=== PATIENT | female | born 1985 | race Caucasian/White ===

== ENCOUNTER 2017-07-08 19:46 | Emergency (ER) | payer MEDICAID | END 2017-07-08 20:33 | disposition home or self-care (01) | LOC: E/R 20:33 | DX: H66.92 Otitis media, unspecified, left ear (principal); R05 Cough; R09.81 Nasal congestion; R51 Headache; J02.9 Acute pharyngitis, unspecified; R11.2 Nausea with vomiting, unspecified; R09.89 Other specified symptoms and signs involving the circulatory and respiratory systems | CPT/HCPCS: 99284 ==

== ENCOUNTER 2017-08-14 14:48 | Emergency (ER) | payer MEDICAID ==
[2017-08-14] MEDS: ACETAMINOPHEN 325 MG TAB PO (17:58)
[2017-08-14 18:04] LABS: ADD MAN DIFF? NO
[2017-08-14 18:07] LABS: WHITE BLOOD COUNT 7.3 10^3/ul (4.8-10.8)
[2017-08-14 18:07] LABS: BASOPHIL # 0.1 10^3/ul (0.0-0.1); BASOPHILS % 0.7 % (0.0-2.0); EOSINOPHILS # 0.1 10^3/ul (0.0-0.5); EOSINOPHILS % 1.6 % (0.0-7.0); HEMATOCRIT 41.3 % (37.0-47.0); LYMPHOCYTES % 27.6 % (15.0-51.0); MEAN CORPUSCULAR HEMOGLOBIN 30.8 pg (29.0-33.0); MEAN CORPUSCULAR HGB CONC 33.9 g/dl (32.0-37.0); MEAN PLATELET VOLUME 8.3 fl (7.4-10.4); MONOCYTE # 0.8 10^3/ul (0.3-0.9); MONOCYTES % 11.2 % (0.0-11.0); NEUTROPHIL # 4.3 10^3/ul (1.6-7.5); NEUTROPHILS % 58.6 % (39.0-77.0); PLATELET COUNT 407 10^3/UL (140-415); RED BLOOD COUNT 4.54 10^6/ul (4.20-5.40); RED CELL DISTRIBUTION WIDTH 12.4 % (11.5-14.5)
[2017-08-14 18:10] LABS: ADD UMIC YES; UR ASCORBIC ACID 40 mg/dL (NEGATIVE); UR BILIRUBIN (Dip) NEGATIVE (NEGATIVE); UR BLOOD (Dip) 1+ mg/dL (NEGATIVE); UR CLARITY SLIGHTLY CLOUDY (CLEAR); UR COLOR YELLOW (YELLOW); UR GLUCOSE (Dip) NEGATIVE (NEGATIVE); UR KETONES (Dip) NEGATIVE (NEGATIVE); UR LEUKOCYTE ESTERASE (Dip) NEGATIVE Leu/ul (NEGATIVE); UR NITRITE (Dip) NEGATIVE (NEGATIVE); UR RBC 1 /HPF (0-5); UR SPECIFIC GRAVITY (Dip) 1.027 (1.003-1.030); UR SQUAMOUS EPITHELIAL CELL FEW /HPF (FEW); UR TOTAL PROTEIN (Dip) NEGATIVE (NEGATIVE); UR UROBILINOGEN (Dip) NEGATIVE (NEGATIVE); UR WBC 1 /HPF (0-5)
== END 2017-08-14 20:10 | disposition home or self-care (01) ==
LOC: FTE 14:48
DX: O20.9 Hemorrhage in early pregnancy, unspecified (principal); R10.30 Lower abdominal pain, unspecified; R10.2 Pelvic and perineal pain; Z3A.01 Less than 8 weeks gestation of pregnancy
CPT/HCPCS: 36415; 76801; 76817; 81001; 84702; 85025; 86900; 86901; 87400; 99284-25

== ENCOUNTER 2017-11-11 20:03 | Emergency (ER) | payer MEDICAID, OTHER ==
[2017-11-11 21:56] LABS: ADD MAN DIFF? NO
[2017-11-11 21:58] LABS: WHITE BLOOD COUNT 8.4 10^3/ul (4.8-10.8)
[2017-11-11 21:58] LABS: BASOPHILS % 0.5 % (0.0-2.0); EOSINOPHILS # 0.1 10^3/ul (0.0-0.5); EOSINOPHILS % 0.7 % (0.0-7.0); HEMATOCRIT 39.4 % (37.0-47.0); HEMOGLOBIN 13.3 g/dl (12.0-16.0); LYMPHOCYTES # 3.1 10^3/ul (0.8-2.9); LYMPHOCYTES % 36.5 % (15.0-51.0); MEAN CORPUSCULAR HEMOGLOBIN 30.5 pg (29.0-33.0); MEAN CORPUSCULAR HGB CONC 33.8 g/dl (32.0-37.0); MEAN CORPUSCULAR VOLUME 90.4 fl (82.0-101.0); MEAN PLATELET VOLUME 8.4 fl (7.4-10.4); MONOCYTE # 0.6 10^3/ul (0.3-0.9); MONOCYTES % 7.2 % (0.0-11.0); NEUTROPHIL # 4.6 10^3/ul (1.6-7.5); PLATELET COUNT 370 10^3/UL (140-415); RED BLOOD COUNT 4.36 10^6/ul (4.20-5.40); RED CELL DISTRIBUTION WIDTH 11.8 % (11.5-14.5)
[2017-11-11 22:43] LABS: ADD UMIC YES; UR ASCORBIC ACID NEGATIVE (NEGATIVE); UR BACTERIA FEW /HPF (NONE SEEN); UR BILIRUBIN (Dip) NEGATIVE (NEGATIVE); UR BLOOD (Dip) 3+ mg/dL (NEGATIVE); UR CLARITY CLEAR (CLEAR); UR COLOR STRAW (YELLOW); UR GLUCOSE (Dip) NEGATIVE (NEGATIVE); UR KETONES (Dip) NEGATIVE (NEGATIVE); UR LEUKOCYTE ESTERASE (Dip) NEGATIVE Leu/ul (NEGATIVE); UR NITRITE (Dip) NEGATIVE (NEGATIVE); UR RBC 0 /HPF (0-5); UR SPECIFIC GRAVITY (Dip) 1.004 (1.003-1.030); UR TOTAL PROTEIN (Dip) NEGATIVE (NEGATIVE); UR UROBILINOGEN (Dip) NEGATIVE (NEGATIVE); UR WBC 0 /HPF (0-5)
== END 2017-11-11 23:05 | disposition home or self-care (01) ==
LOC: FTE 20:03
DX: O20.0 Threatened abortion (principal); Z3A.01 Less than 8 weeks gestation of pregnancy
CPT/HCPCS: 36415; 76801; 76817; 81001; 84702; 85025; 86900; 86901; 99284-25

== ENCOUNTER 2018-05-21 13:20 | Emergency (ER) | payer MEDICAID ==
[2018-05-21 16:13] LABS: URINE BLOOD (Dip) POC 2+ (NEGATIVE); URINE GLUCOSE (Dip) POC Negative (NEGATIVE); URINE KETONES (Dip) POC Negative (NEGATIVE); URINE LEUKOCYTE EST (Dip) POC Negative (NEGATIVE); URINE NITRITE (Dip) POC Negative (NEGATIVE); URINE TOTAL PROTEIN POC Negative (NEGATIVE)
== END 2018-05-21 17:36 | disposition home or self-care (01) ==
LOC: FTE 13:20
DX: O20.9 Hemorrhage in early pregnancy, unspecified (principal); Z3A.00 Weeks of gestation of pregnancy not specified
CPT/HCPCS: 36415; 76801; 81003; 81025; 84702; 99284-25

== ENCOUNTER 2018-05-24 19:40 | Emergency (ER) | payer MEDICAID | END 2018-05-25 | disposition home or self-care (01) | LOC: FTE 05-25 | DX: Z32.01 Encounter for pregnancy test, result positive (principal) | CPT/HCPCS: 84702; 99283 ==

== ENCOUNTER 2018-09-15 11:23 | Emergency (ER) | payer MEDICAID ==
[2018-09-15] MEDS: METOCLOPRAMIDE 10 MG TAB PO (11:55)
[2018-09-15] MEDS: ACETAMINOPHEN 325 MG TAB PO (11:55)
[2018-09-15 12:13] LABS: ADD UMIC NO; UR ASCORBIC ACID NEGATIVE (NEGATIVE); UR BILIRUBIN (Dip) NEGATIVE (NEGATIVE); UR BLOOD (Dip) NEGATIVE (NEGATIVE); UR CLARITY CLEAR (CLEAR); UR COLOR STRAW (YELLOW); UR GLUCOSE (Dip) NEGATIVE (NEGATIVE); UR KETONES (Dip) NEGATIVE (NEGATIVE); UR LEUKOCYTE ESTERASE (Dip) NEGATIVE Leu/ul (NEGATIVE); UR NITRITE (Dip) NEGATIVE (NEGATIVE); UR SPECIFIC GRAVITY (Dip) 1.002 (1.003-1.030); UR TOTAL PROTEIN (Dip) NEGATIVE (NEGATIVE); UR UROBILINOGEN (Dip) NEGATIVE (NEGATIVE)
== END 2018-09-15 14:24 | disposition home or self-care (01) ==
LOC: FTE 11:23
DX: O21.9 Vomiting of pregnancy, unspecified (principal); R51 Headache; O10.011 Pre-existing essential hypertension complicating pregnancy, first trimester; O26.892 Other specified pregnancy related conditions, second trimester; Z3A.14 14 weeks gestation of pregnancy
CPT/HCPCS: 76805; 81003; 99284-25

== ENCOUNTER 2018-10-03 23:14 | Emergency (ER) | payer MEDICAID, OTHER ==
[2018-10-04] MEDS: ACETAMINOPHEN 500 MG TAB PO (01:08)
[2018-10-04 01:25] LABS: URINE BLOOD (Dip) POC Negative (NEGATIVE); URINE GLUCOSE (Dip) POC Negative (NEGATIVE); URINE KETONES (Dip) POC Negative (NEGATIVE); URINE LEUKOCYTE EST (Dip) POC Negative (NEGATIVE); URINE NITRITE (Dip) POC Negative (NEGATIVE); URINE TOTAL PROTEIN POC Negative (NEGATIVE)
== END 2018-10-04 03:00 | disposition home or self-care (01) ==
LOC: FTE 23:14
DX: O23.41 Unspecified infection of urinary tract in pregnancy, first trimester (principal); R10.2 Pelvic and perineal pain; O10.012 Pre-existing essential hypertension complicating pregnancy, second trimester; Z3A.17 17 weeks gestation of pregnancy
CPT/HCPCS: 76805; 81003; 99284-25

== ENCOUNTER 2018-10-20 14:37 | Outpatient (CLI) | payer MEDICAID ==
[2018-10-20 16:02] LABS: ADD UMIC NO; UR ASCORBIC ACID NEGATIVE (NEGATIVE); UR BILIRUBIN (Dip) NEGATIVE (NEGATIVE); UR BLOOD (Dip) NEGATIVE (NEGATIVE); UR CLARITY CLEAR (CLEAR); UR COLOR COLORLESS (YELLOW); UR GLUCOSE (Dip) NEGATIVE (NEGATIVE); UR KETONES (Dip) NEGATIVE (NEGATIVE); UR LEUKOCYTE ESTERASE (Dip) NEGATIVE Leu/ul (NEGATIVE); UR NITRITE (Dip) NEGATIVE (NEGATIVE); UR SPECIFIC GRAVITY (Dip) 1.004 (1.003-1.030); UR TOTAL PROTEIN (Dip) NEGATIVE (NEGATIVE); UR UROBILINOGEN (Dip) NEGATIVE (NEGATIVE)
== END 2018-10-20 18:13 | disposition home or self-care (01) ==
LOC: OBT 14:37 → L-D 14:38 → OBT 18:13
DX: O36.8120 Decreased fetal movements, second trimester, not applicable or unspecified (principal); O26.892 Other specified pregnancy related conditions, second trimester; R10.2 Pelvic and perineal pain; Z3A.21 21 weeks gestation of pregnancy
CPT/HCPCS: 76817; 81003; 87086

== ENCOUNTER 2019-01-02 11:20 | Outpatient (CLI) | payer MEDICAID ==
[2019-01-02 12:11] LABS: ADD UMIC YES; UR ASCORBIC ACID 40 mg/dL (NEGATIVE); UR BACTERIA FEW /HPF (NONE SEEN); UR BILIRUBIN (Dip) NEGATIVE (NEGATIVE); UR BLOOD (Dip) NEGATIVE (NEGATIVE); UR CLARITY CLOUDY (CLEAR); UR COLOR AMBER (YELLOW); UR GLUCOSE (Dip) NEGATIVE (NEGATIVE); UR KETONES (Dip) NEGATIVE (NEGATIVE); UR LEUKOCYTE ESTERASE (Dip) NEGATIVE Leu/ul (NEGATIVE); UR MUCUS MODERATE /HPF (NONE SEEN); UR NITRITE (Dip) NEGATIVE (NEGATIVE); UR RBC 0 /HPF (0-5); UR SPECIFIC GRAVITY (Dip) 1.017 (1.003-1.030); UR TOTAL PROTEIN (Dip) NEGATIVE (NEGATIVE); UR UROBILINOGEN (Dip) NEGATIVE (NEGATIVE); UR WBC 1 /HPF (0-5)
== END 2019-01-02 13:58 | disposition home or self-care (01) ==
LOC: OBT 11:20 → L-D 11:20 → OBT 13:58
DX: O26.893 Other specified pregnancy related conditions, third trimester (principal); Z3A.30 30 weeks gestation of pregnancy; T14.90XA Injury, unspecified, initial encounter; W19.XXXA Unspecified fall, initial encounter; Y92.000 Kitchen of unspecified non-institutional (private) residence as the place of occurrence of the external cause
CPT/HCPCS: 76818; 81001

== ENCOUNTER 2019-01-24 17:48 | Outpatient (CLI) | payer MEDICAID ==
[2019-01-24 22:15] LABS: ADD UMIC NO; UR ASCORBIC ACID NEGATIVE (NEGATIVE); UR BACTERIA FEW /HPF (NONE SEEN); UR BILIRUBIN (Dip) NEGATIVE (NEGATIVE); UR BLOOD (Dip) NEGATIVE (NEGATIVE); UR CLARITY SLIGHTLY CLOUDY (CLEAR); UR COLOR YELLOW (YELLOW); UR GLUCOSE (Dip) NEGATIVE (NEGATIVE); UR KETONES (Dip) NEGATIVE (NEGATIVE); UR LEUKOCYTE ESTERASE (Dip) NEGATIVE Leu/ul (NEGATIVE); UR NITRITE (Dip) NEGATIVE (NEGATIVE); UR RBC 0 /HPF (0-5); UR SPECIFIC GRAVITY (Dip) 1.014 (1.003-1.030); UR SQUAMOUS EPITHELIAL CELL FEW /HPF (FEW); UR TOTAL PROTEIN (Dip) NEGATIVE (NEGATIVE); UR UROBILINOGEN (Dip) NEGATIVE (NEGATIVE); UR WBC 2 /HPF (0-5)
[2019-01-24 22:44] LABS: RUPTURE FETAL MEMBRANES NEGATIVE (NEGATIVE)
== END 2019-01-25 00:14 | disposition home or self-care (01) ==
LOC: OBT 17:48 → L-D 17:49
DX: O62.9 Abnormality of forces of labor, unspecified (principal); Z3A.34 34 weeks gestation of pregnancy
CPT/HCPCS: 76815; 76818; 81001; 81003; 84112

== ENCOUNTER 2019-03-02 19:15 | Inpatient (IN) | payer MEDICAID ==
[2019-03-02] MEDS ORDERED: LACTATED RINGER'S 1,000 ML IV (20:22)
[2019-03-02] MEDS ORDERED: CITRIC ACID/NA CITRATE 30 ML CUP (20:26)
[2019-03-02] MEDS ORDERED: CEFAZOLIN 2 GM/50 ML (PMX) 50 ML IVPB (20:26)
[2019-03-02] MEDS ORDERED: CARBOPROST 250 MCG INJ IM (20:30)
[2019-03-02] MEDS ORDERED: MISOPROSTOL 200 MCG TAB PR (20:30)
[2019-03-02] MEDS ORDERED: LIDOCAINE 1% (MPF) 30 ML INJ INJ (20:30)
[2019-03-02] MEDS ORDERED: METHYLERGONOVINE 0.2 MG INJ IM (20:30)
[2019-03-02] MEDS ORDERED: AMPICILLIN 2 GM/NS (PMX) 100 ML IV (20:30)
[2019-03-02] MEDS ORDERED: OXYTOCIN 30 UNITS/LR 500 ML IV ×3 (20:30→23:39)
[2019-03-02] MEDS: CEFAZOLIN 2 GM/50 ML (PMX) 50 ML IVPB (20:53)
[2019-03-02] MEDS: LACTATED RINGER'S 1,000 ML IV (20:53)
[2019-03-02] MEDS ORDERED: CITRIC ACID/NA CITRATE 30 ML CUP PO (21:00)
[2019-03-02] MEDS: CITRIC ACID/NA CITRATE 30 ML CUP PO (21:08)
[2019-03-02] MEDS ORDERED: METOCLOPRAMIDE 10 MG INJ (22:21)
[2019-03-02] MEDS ORDERED: ONDANSETRON 4 MG INJ (22:21)
[2019-03-02] MEDS ORDERED: KETOROLAC 30 MG INJ (22:21)
[2019-03-02] MEDS ORDERED: morphine SULFATE/PF (10 MG/10 ML) INJ (22:21)
[2019-03-02] MEDS: OXYTOCIN 30 UNITS/LR 500 ML IV (23:58)
[2019-03-03] MEDS ORDERED: morphine 2 MG INJ IV ×5
[2019-03-03] MEDS ORDERED: NALOXONE (0.4 MG/ML) INJ IV
[2019-03-03] MEDS ORDERED: MEPERIDINE 25 MG INJ IV
[2019-03-03] MEDS ORDERED: KETOROLAC 30 MG INJ IV
[2019-03-03] MEDS ORDERED: ONDANSETRON 4 MG INJ IV ×2
[2019-03-03] MEDS ORDERED: DIPHENHYDRAMINE 50 MG INJ IV ×2
[2019-03-03] MEDS: KETOROLAC 30 MG INJ IV (01:22)
[2019-03-03] MEDS: DEXTROSE 5%-LR 1,000 ML IV ×3 (02:08→21:22)
[2019-03-03] MEDS ORDERED: METHYLERGONOVINE 0.2 MG TAB PO (02:30)
[2019-03-03] MEDS ORDERED: CARBOPROST 250 MCG INJ IM (02:30)
[2019-03-03] MEDS ORDERED: METHYLERGONOVINE 0.2 MG INJ IM (02:30)
[2019-03-03] MEDS ORDERED: OXYTOCIN 30 UNITS/LR 500 ML IV (02:30)
[2019-03-03] MEDS ORDERED: MISOPROSTOL 200 MCG TAB PR (02:30)
[2019-03-03] MEDS: OXYTOCIN 30 UNITS/LR 500 ML IV (04:05)
[2019-03-03] MEDS: SENNA/DOCUSATE NA (8.6MG/50MG) TAB PO ×2 (10:09→20:49)
[2019-03-03] MEDS ORDERED: DIPHTH/TET/ACEL PERTUSS (ADULT) 0.5 ML VIAL IM* (11:00)
[2019-03-03] MEDS: IBUPROFEN 800 MG TAB PO (20:49)
[2019-03-04] MEDS: HYDROCODONE/APAP (5/325) TAB PO ×6 (00:18→21:41)
[2019-03-04] MEDS: DEXTROSE 5%-LR 1,000 ML IV ×2 (02:08→10:08)
[2019-03-04] MEDS: IBUPROFEN 800 MG TAB PO ×3 (02:29→18:11)
[2019-03-04] MEDS: SENNA/DOCUSATE NA (8.6MG/50MG) TAB PO ×2 (08:48→21:13)
[2019-03-04] MEDS: LANOLIN HPA 1 PKT TOP (08:48)
[2019-03-04] MEDS: MAGNESIUM HYDROXIDE 30ML CUP PO (18:17)
[2019-03-05] MEDS: IBUPROFEN 800 MG TAB PO ×2 (03:12→11:26)
[2019-03-05] MEDS: HYDROCODONE/APAP (5/325) TAB PO ×2 (05:31→11:26)
[2019-03-05] MEDS: SENNA/DOCUSATE NA (8.6MG/50MG) TAB PO (09:33)
[2019-03-05] MEDS: MAGNESIUM HYDROXIDE 30ML CUP PO (09:37)
[2019-03-05] MEDS: MEASLES,MUMPS,RUBELLA VACCINE INJ SC* (09:38)
[2019-03-05] MEDS: DIPHTH/TET/ACEL PERTUSS (ADULT) 0.5 ML VIAL IM* (09:39)
[2019-03-05] MEDS: BISACODYL 10 MG SUPP PR (11:27)
== END 2019-03-05 14:05 | disposition home or self-care (01) | DRG 788 ==
LOC: PP1 03-03 02:08 → L-D 19:15
PROC: 10D00Z1 Extraction of Products of Conception, Low, Open Approach (ICD-10-PCS; principal; 2019-03-02 21:00)
PROC: 10907ZC Drainage of Amniotic Fluid, Therapeutic from Products of Conception, Via Natural or Artificial Opening (ICD-10-PCS; 2019-03-02 21:00)
DX: O34.211 Maternal care for low transverse scar from previous cesarean delivery (principal); O32.8XX0 Maternal care for other malpresentation of fetus, not applicable or unspecified; Z3A.39 39 weeks gestation of pregnancy; Z37.0 Single live birth
CPT/HCPCS: 85025; 85610; 85730; 86592; 86850; 86900; 86901; 87340; 99464